=== PATIENT | female | born 1960 | race Caucasian/White ===

== ENCOUNTER 2021-07-30 06:34 | Emergency (ER) | payer BC, SELFPAY ==
--- NOTE | ~2021-07-30 | CT_ITS ---
EXAMINATION: CT FACE WITH CONTRAST CT NECK WITH CONTRAST CLINICAL INFORMATION: Right-sided facial swelling. Evaluate for abscess. COMPARISON: No relevant prior imaging. TECHNIQUE: Block Splitter Operator images were obtained. CT imaging of the face and neck was performed after the intravenous administration of 85 mL Omnipaque 350. Data was reformatted into multiplanar images at the acquisition workstation. This CT examination was performed using dose optimization techniques as appropriate, including one or more of the following: Automated exposure control, iterative reconstruction, and adjustment of technique factors (mA and/or kVp) according to patient size (this includes techniques or standardized protocols for targeted exams where dose is matched to indication/reason for exam). DLP: 725 mGy-cm. FINDINGS: Face: There is inflammatory stranding within the subcutaneous soft tissues of the right face. The source of infection is not clearly evident on the basis of this examination. No abnormal erosive osseous changes within the maxillary or mandibular alveolar process is to suggest a source of odontogenic disease. No identifiable subperiosteal abscess or discrete drainable fluid collection visualized elsewhere within the [id number] of this examination. Nasal bones, zygomatic arches, and pterygoid processes are intact. No acute mandibular fracture. The temporomandibular joints are symmetric. Paranasal sinuses are well aerated. All of the major paranasal sinus drainage pathways are patent. Nasal septum deviates to the right. Globes and extraocular muscles are symmetric. No abnormal retrobulbar mass or collection. Lamina papyracea and orbital floors are intact. Orbital apices are unremarkable. Limited visualization of the intracranial anatomy reveals no abnormal finding. Specifically there is no midline shift or hydrocephalus. Neck: Pharyngeal mucosal spaces are symmetric. Parapharyngeal and retromaxillary fat is preserved. Block Splitter Operator spaces are symmetric. The parotid and submandibular glands are unremarkable. The tongue base and epiglottis are normal. Preepiglottic fat is preserved. Glottic and subglottic airways are widely patent. The thyroid gland is normal and the remainder of the visualized visceral soft tissues are normal. There are no pathologically enlarged cervical lymph nodes. No mediastinal or axillary adenopathy is visualized within the [id number] of this examination. Lung apices are clear. There is a small intrapulmonary lymph node adjacent to the major fissure best visualized on axial image 114 of 158 series 3. The aortic arch apex is normal. Cervical carotid or vertebral arteries are grossly unremarkable. Internal jugular veins fill symmetrically. CT/CT facial bones w con IMPRESSION: There is asymmetric inflammation within the subcutaneous soft tissues of the right face, the source of which is not clearly evident on this examination. No identifiable anatomic abnormalities to suggest an odontogenic source. No discrete drainable fluid collection or abscess.
--- NOTE | ~2021-07-30 | CT_ITS ---
EXAMINATION: CT FACE WITH CONTRAST CT NECK WITH CONTRAST CLINICAL INFORMATION: Right-sided facial swelling. Evaluate for abscess. COMPARISON: No relevant prior imaging. TECHNIQUE: Owner Professional Engineer images were obtained. CT imaging of the face and neck was performed after the intravenous administration of 85 mL Omnipaque 350. Data was reformatted into multiplanar images at the acquisition workstation. This CT examination was performed using dose optimization techniques as appropriate, including one or more of the following: Automated exposure control, iterative reconstruction, and adjustment of technique factors (mA and/or kVp) according to patient size (this includes techniques or standardized protocols for targeted exams where dose is matched to indication/reason for exam). DLP: 725 mGy-cm. FINDINGS: Face: There is inflammatory stranding within the subcutaneous soft tissues of the right face. The source of infection is not clearly evident on the basis of this examination. No abnormal erosive osseous changes within the maxillary or mandibular alveolar process is to suggest a source of odontogenic disease. No identifiable subperiosteal abscess or discrete drainable fluid collection visualized elsewhere within the gzuhb-gv-pcdh of this examination. Nasal bones, zygomatic arches, and pterygoid processes are intact. No acute mandibular fracture. The temporomandibular joints are symmetric. Paranasal sinuses are well aerated. All of the major paranasal sinus drainage pathways are patent. Nasal septum deviates to the right. Globes and extraocular muscles are symmetric. No abnormal retrobulbar mass or collection. Lamina papyracea and orbital floors are intact. Orbital apices are unremarkable. Limited visualization of the intracranial anatomy reveals no abnormal finding. Specifically there is no midline shift or hydrocephalus. Neck: Pharyngeal mucosal spaces are symmetric. Parapharyngeal and retromaxillary fat is preserved. Math And Physics Instructor spaces are symmetric. The parotid and submandibular glands are unremarkable. The tongue base and epiglottis are normal. Preepiglottic fat is preserved. Glottic and subglottic airways are widely patent. The thyroid gland is normal and the remainder of the visualized visceral soft tissues are normal. There are no pathologically enlarged cervical lymph nodes. No mediastinal or axillary adenopathy is visualized within the oxxkf-[id number]-jvkc of this examination. Lung apices are clear. There is a small intrapulmonary lymph node adjacent to the major fissure best visualized on axial image 114 of 158 series 3. The aortic arch apex is normal. Cervical carotid or vertebral arteries are grossly unremarkable. Internal jugular veins fill symmetrically. CT/CT soft tissue neck w con IMPRESSION: There is asymmetric inflammation within the subcutaneous soft tissues of the right face, the source of which is not clearly evident on this examination. No identifiable anatomic abnormalities to suggest an odontogenic source. No discrete drainable fluid collection or abscess.
[2021-07-30 07:03] VITALS: BP 181/83; PULSE 109; RESP 18; TEMP 37; O2SAT 99; BMI 26.1
[2021-07-30 07:19] VITALS: BP 160/78; PULSE 104; RESP 16; TEMP 36.7; O2SAT 97
--- NOTE | 2021-07-30 07:47 | PC.NURSE ---
pt r side of facen swollen c/o sore throat and diff swallowing. states that she took benadryl 4 tabs with she vomitted this am. pt is a/o x 3 no sob/reddy noted skin pink warm dry speaks in full sentences and is able to hold secretions. no facial drooping noted.
--- NOTE | 2021-07-30 07:55 | ED_ITS ---
HPI - General Adult General Chief complaint: General Medical Stated complaint: swollen face Time Seen by Provider: 07/30/21 07:51 Source: patient Mode of arrival: ambulatory Limitations: no limitations History of Present Illness HPI narrative: 60-year-old male female came in for evaluation of right-sided facial swelling. Patient woke up from sleep with right-sided cheek swelling, patient had subjective feeling of difficulty swallowing. Tried to take Benadryl pill but she shortly vomited after. Patient is feeling difficulty swallowing also. Patient has no past medical history and taking no medication for any reason, patient declined any dental issue or problem. No recent signs of infection. Complaining of sore throat. Patient decline shortness of breath or change of voice. Patient is taking no medication normally at home. Related Data Previous Rx's Medication Instructions Recorded amoxicillin 500 mg-potassium 1 tab PO BID #14 tab 07/30/21 clavulanate 125 mg tablet prednisone 20 mg tablet 20 mg PO BID #6 tab 07/30/21 Allergies Allergy/AdvReac Type Severity Reaction Status Date / Time No Known Allergies Allergy Verified 07/30/21 07:47 Review of Systems Review of Systems: All other systems are reviewed and are negative Constitutional: Reports as per HPI and Reports no additional constitutional comp laints Eyes: Reports as per HPI and Reports no additional eye complaints Reports system reviewed and no additional complaints, except as documented Cardiovascular: Reports as per HPI and Reports no additional cardiovascular complaints Respiratory: Reports as per HPI and Reports no additional respiratory complaints Gastrointestinal: Reports as per HPI and Reports no additional gastrointestinal complaints Genitourinary: Reports no additional female genitourinary complaints Musculoskeletal: Reports no additional musculoskeletal complaints Skin/Breast: Reports system reviewed and no additional complaints, except as docu Psychiatric: Reports no additional psychiatric complaints Endocrine: Reports no additional endocrine complaints Hematologic/Lymphatic: Reports no additional hematologic/lymphatic complaints Allergic/Immunologic: Reports no additional allergic/immunologic complaints Reports system reviewed and no additional complaints, except as documented and Reports Abnormal speech present [facility] Social History Social History Alcohol intake: current Alcohol intake frequency: a few times a week Patient Tobacco Use Status: Never used Tobacco Use of substances other than those prescribed or required for medical reasons: No Advance Directives: No Advance Directives Information Provided: Yes Physical Exam ED Vital Signs: Vital Signs - 24 hr 07/30/21 07:03 07/30/21 07:19 07/30/21 09:57 Temperature 98.6 F 98.1 F 98.7 F Pulse Rate 109 H 104 H 98 Respiratory Rate 18 16 16 Blood Pressure 181/83 H 160/78 H 145/67 H Pulse Oximetry 99 97 99 07/30/21 12:13 Temperature Pulse Rate 90 Respiratory Rate 14 Blood Pressure 145/68 H Pulse Oximetry 100 BMI result Body Mass Index 26.1 Vital signs have been reviewed as appeared to be correct. Blood pressure normal. Heart rate normal. Respiration rate normal. Temperature normal. Oxygen saturation normal. Appearance: Alert. Oriented X3. No acute distress. Head: Normal external exam. Normocephalic. Atraumatic. No Vanegas signs noted. No raccoon eyes noted Eyes: PERRLA. EOMI. Conjunctiva and sclera normal. Eyelids normal. ENT: TM's Normal. Pharynx normal. Uvula midline. Moist mucous membranes. No trismus noted. No drooling noted. No muffled voice noted. Right cheek swelling with no tenderness or redness. Patent airway no stridor. Neck: Normal inspection. Neck supple. FROM. No adenopathy. Thyroid Normal. No meningeal signs. No neck mass noted. CVS: Normal heart rate and rhythm. Heart sound normal. No murmurs noted. Pulses normal throughout. Respiratory: No respiratory distress. Painless inspiration. Breath sounds normal. No wheezes/rales/rhonchi noted. Chest nontender. No accessory muscle usage noted or decreased air movement noted. Abdomen: Soft and nontender. Bowel sounds normal in all 4 quadrants. No distention noted. No organomegaly noted. No visible injury noted. Back: No CVA tenderness. Full range of motion noted. Skin: Skin warm and dry. Normal skin color. Normal skin turgor. No rashes/lesions/lacerations noted. Extremities: No lower extremity edema. Extremities exhibit normal range of motion. Extremities nontender. Neuro: Oriented X 3. Cranial nerve exam: II-XII are grossly intact No motor deficit. No sensory deficit. Reflexes normal. Course Course Course Narrative: Assessment and plan. 60-year-old female came in for evaluation of difficulty swallowing and right facial swelling. patient declined it good reason for the facial swelling. Unremarkable workup in the emergency department including face soft tissue neck CT which showed patent airway and symmetric swelling of the right side of the face. Physical exam/labs/CT shows no obvious reason of patient's symptoms. Patient felt better after was given Solu-Medrol/epinephrine/Pepcid will discharg e the patient home on short course of amoxicillin and 3 days course of prednisone. Medical Decision Making Lab Data Lab results reviewed: Yes I reviewed the patient's lab results. Result diagrams: 07/30/21 08:04 07/30/21 08:04 Labs: Lab Results 07/30/21 07/30/21 07/30/21 Range/Units 08:04 08:04 08:04 WBC 8.1 (4.8-10.8) X10*3/uL RBC 4.44 (4.20-5.50) X10*6/uL Hgb 11.8 L (12.0-16.0) g/dl Hct 38.5 (37.0-47.0) % MCV 86.7 (80.0-98.0) fL MCH 26.6 L (27.0-33.0) pg MCHC 30.6 L (31.0-35.0) g/dl RDW 20.4 H (11.0-16.0) % Plt Count 239 (160-400) X10*3/uL MPV 10.5 (9.4-12.3) fL Immature Gran % (Auto) 0.1 (0.0-0.4) % Neut % (Auto) 74.9 H (45-73) % Lymph % (Auto) 15.6 L (20-40) % [place] % (Auto) 7.8 (2-11) % Eos % (Auto) 1.2 (0-4) % Baso % (Auto) 0.4 (0-2) % Lymph # (Auto) 1.3 (1.2-4.9) X10*3/uL [place] # (Auto) 0.6 (0.1-1.2) X10*3/uL Eos # (Auto) 0.1 (0.0-0.4) X10*3/uL Baso # (Auto) 0.0 (0.0-0.2) X10*3/uL Abs Immat Gran (auto) 0.01 (0.00-0.03) X10*3/uL Absolute Neuts (auto) 6.1 (2.0-8.3) x10*3/uL Absolute Nucleated RBC 0.000 (0.0-0.012) X10*3/uL Nucleated RBC % (auto) 0.0 (0.0-0.2) /100WBC Sodium 139 (135-145) mmol/L Potassium 5.2 H (3.3-5.1) mmol/L Chloride 106 (96-108) mmol/L Carbon Dioxide 24 (22-29) mmol/L Anion Gap 14 (12-20) BUN 14 (9-16) mg/dL Creatinine 1.01 (0.5-1.4) mg/dL Estim Creat Clear Calc 55.8 Estimated GFR 56 Random Glucose 87 (60-115) mg/dL Calcium 9.7 (8.4-10.2) mg/dL Influenza Type A (PCR) (Negative) Influenza Type B (PCR) (Negative) RSV RNA Qual (PCR) (Negative) SARS-CoV-2 RNA (RT-PCR) (Negative) S. pyogenes GrpA ANILA Negative (Negative) 07/30/21 Range/Units 08:04 WBC (4.8-10.8) X10*3/uL RBC (4.20-5.50) X10*6/uL Hgb (12.0-16.0) g/dl Hct (37.0-47.0) % MCV (80.0-98.0) fL MCH (27.0-33.0) pg MCHC (31.0-35.0) g/dl RDW (11.0-16.0) % Plt Count (160-400) X10*3/uL MPV (9.4-12.3) fL Immature Gran % (Auto) (0.0-0.4) % Neut % (Auto) (45-73) % Lymph % (Auto) (20-40) % [place] % (Auto) (2-11) % Eos % (Auto) (0-4) % Baso % (Auto) (0-2) % Lymph # (Auto) (1.2-4.9) X10*3/uL [place] # (Auto) (0.1-1.2) X10*3/uL Eos # (Auto) (0.0-0.4) X10*3/uL Baso # (Auto) (0.0-0.2) X10*3/uL Abs Immat Gran (auto) (0.00-0.03) X10*3/uL Absolute Neuts (auto) (2.0-8.3) x10*3/uL Absolute Nucleated RBC (0.0-0.012) X10*3/uL Nucleated RBC % (auto) (0.0-0.2) /100WBC Sodium (135-145) mmol/L Potassium (3.3-5.1) mmol/L Chloride (96-108) mmol/L Carbon Dioxide (22-29) mmol/L Anion Gap (12-20) BUN (9-16) mg/dL Creatinine (0.5-1.4) mg/dL Estim Creat Clear Calc Estimated GFR Random Glucose (60-115) mg/dL Calcium (8.4-10.2) mg/dL Influenza Type A (PCR) NEGATIVE (Negative) Influenza Type B (PCR) NEGATIVE (Negative) RSV RNA Qual (PCR) NEGATIVE (Negative) SARS-CoV-2 RNA (RT-PCR) NEGATIVE (Negative) S. pyogenes GrpA ANILA (Negative) Imaging Data Facial/soft tissue neck CT: Attestation: I personally reviewed and interpreted this imaging study as follows: Radiologist's impression: There is asymmetric inflammation within the subcutaneous soft tissues of the right face, the source of which is not clearly evident on this examination. No identifiable anatomic abnormalities to suggest an odontogenic source. No discrete drainable fluid collection or abscess. Discharge Plan Discharge Clinical Impression: Right facial swelling Patient Disposition: Home, Self-Care Additional Instructions: Seek immediate medical attention if any difficulty breathing,fever,swollen throat,difficult to swallow, or of voice Prescriptions: New amoxicillin-pot clavulanate 500-125 mg tablet 1 tab PO BID Qty: 14 0RF prednisone 20 mg tablet 20 mg PO BID Qty: 6 0RF Referrals: Physician,Unknown J [Primary Care Provider] -
[2021-07-30] MEDS: 0.9 % Sodium Chloride 1,000 ML 999 ML IV ×2 (08:00→11:47)
[2021-07-30 08:11] LABS: MANUAL DIFF FLAG NO
[2021-07-30 08:23] LABS: Basophils Percent Auto 0.4 % (0-2); Eosinophils Absolute Auto 0.1 X10*3/uL (0.0-0.4); Eosinophils Percent Auto 1.2 % (0-4); Hematocrit 38.5 % (37.0-47.0); Hemoglobin 11.8 g/dl (12.0-16.0); Imm Gran Abs Auto 0.01 X10*3/uL (0.00-0.03); Imm Gran Pct Auto 0.1 % (0.0-0.4); Lymphocytes Absolute Auto 1.3 X10*3/uL (1.2-4.9); Lymphocytes Percent Auto 15.6 % (20-40); Mean Corpuscular HGB Conc 30.6 g/dl (31.0-35.0); Mean Corpuscular Hemoglobin 26.6 pg (27.0-33.0); Mean Corpuscular Volume 86.7 fL (80.0-98.0); Mean Platelet Volume 10.5 fL (9.4-12.3); Monocytes Absolute Auto 0.6 X10*3/uL (0.1-1.2); Monocytes Percent Auto 7.8 % (2-11); Neutrophils Absolute Auto 6.1 x10*3/uL (2.0-8.3); Neutrophils Percent Auto 74.9 % (45-73); Platelet Count 239 X10*3/uL (160-400); Red Blood Count 4.44 X10*6/uL (4.20-5.50); Red Cell Distribution Width 20.4 % (11.0-16.0); White Blood Count 8.1 X10*3/uL (4.8-10.8)
[2021-07-30 08:29] LABS: Anion Gap 14 (12-20); Blood Urea Nitrogen 14 mg/dL (9-16); Calcium 9.7 mg/dL (8.4-10.2); Carbon Dioxide 24 mmol/L (22-29); Chloride 106 mmol/L (96-108); Creatinine Clr Calc Pharmacy 55.8; Estimated Glomerular Filt Rate 56; Glucose Random 87 mg/dL (60-115); Potassium 5.2 mmol/L (3.3-5.1); Sodium 139 mmol/L (135-145)
[2021-07-30 08:37] LABS: IDNOW Serial# 08D9AD1C; Strep A Nucleic Acid Negative (Negative)
[2021-07-30 08:55] LABS: Influenza A PCR NEGATIVE (Negative); Influenza B PCR NEGATIVE (Negative); Resp Syncy Virus RNA Qual PCR NEGATIVE (Negative); SARS COV2 PCR INHOUSE NEGATIVE (Negative)
[2021-07-30] MEDS: iohexoL 350 MG/ML 100 ML INFUS..BTL IV (09:32)
[2021-07-30 09:57] VITALS: BP 145/67; PULSE 98; RESP 16; TEMP 37.1; O2SAT 99
[2021-07-30] MEDS: methylPREDNISolone Sod Succ 125 MG/2 ML VIAL IVPUSH (11:48)
[2021-07-30] MEDS: Famotidine/PF 20 MG/2 ML VIAL IVPUSH (11:48)
[2021-07-30] MEDS: diphenhydrAMINE HCL 50 MG/ML VIAL 25 MG IVPUSH (11:48)
[2021-07-30 12:13] VITALS: BP 145/68; PULSE 90; RESP 14; O2SAT 100
== END 2021-07-30 14:42 | disposition home or self-care (01) ==
PROVIDERS: Emergency Provider Emergency Medicine
DX: R22.0 Localized swelling, mass and lump, head (principal); Z20.822 Contact with and (suspected) exposure to COVID-19; J02.9 Acute pharyngitis, unspecified
CPT/HCPCS: 0241U; 36415; 70487; 70491; 80048; 85025; 87651; 96361; 96374; 96375; 99284; J1200; J2930; Q9967

== ENCOUNTER 2021-10-01 17:25 | Emergency (ER) | payer BC, SELFPAY ==
--- NOTE | ~2021-10-01 | CT_ITS ---
EXAMINATION: CT ABDOMEN AND PELVIS WITHOUT CONTRAST CLINICAL INFORMATION: Bilateral lower quadrant pain COMPARISON: None TECHNIQUE: Multidetector volumetric imaging was performed from the superior aspect of the liver through the pubic symphysis. Sagittal and coronal reformatted images were obtained on the technologist's workstation. This CT examination was performed using dose optimization techniques as appropriate, variously including the following: *Automated exposure control *Adjustment of mA and/or kV according to patient size (this includes techniques or standardized protocols for targeted exams where dose is matched to indication/reason for exam; i.e. extremities or head) *Use of iterative reconstruction technique DLP: 505 mGy-cm FINDINGS: LUNG BASES: The visualized lung bases are unremarkable. LIVER, GALLBLADDER, AND BILIARY TREE: The liver is normal in size, shape, and attenuation. No focal hepatic lesion or biliary ductal dilatation is present. There is trace perihepatic ascites. The gallbladder is unremarkable with no evidence of radiopaque gallstones, gallbladder wall thickening, or obvious pericholecystic inflammatory changes. PANCREAS: Unremarkable. SPLEEN: Unremarkable. ADRENAL GLANDS: Unremarkable. KIDNEYS AND URETERS: The kidneys are normal in size, shape, and attenuation. No hydronephrosis, hydroureter, or calculi seen. No perinephric stranding. Bilateral parapelvic cysts. BLADDER: Unremarkable. GASTROINTESTINAL TRACT: Postsurgical changes of the stomach involving a gastric sleeve. Small hiatal hernia. Normal caliber small bowel. No obstruction. There is wall thickening of the distal ileum extending to the terminal ileum. Inflammatory stranding of the adjacent fat. There is no colonic wall thickening. ABDOMINAL WALL: No significant hernia is appreciated. LYMPH NODES: Normal. VASCULAR: Normal caliber aorta with mild atherosclerotic calcification. PELVIC VISCERA: Anteverted uterus with no adnexal mass. Small volume of free fluid throughout the pelvis. OSSEOUS STRUCTURES: No acute or suspicious osseous abnormality. CT/CT abdomen pelvis wo con IMPRESSION: Prominent wall thickening with adjacent inflammation involving the distal ileum extending to the terminal ileum. Small volume of free fluid throughout the abdomen and pelvis. The appearance is most suggestive of enteritis. Fleischner guidelines were followed.
[2021-10-01 17:33] VITALS: BP 158/91; PULSE 90; RESP 18; TEMP 37.1; O2SAT 99; BMI 26.4
[2021-10-01 17:42] LABS: MANUAL DIFF FLAG NO
[2021-10-01 17:44] LABS: Basophils Percent Auto 0.4 % (0-2); Eosinophils Percent Auto 0.3 % (0-4); Hematocrit 42.6 % (37.0-47.0); Hemoglobin 13.6 g/dl (12.0-16.0); Imm Gran Abs Auto 0.02 X10*3/uL (0.00-0.03); Imm Gran Pct Auto 0.2 % (0.0-0.4); Lymphocytes Absolute Auto 2.6 X10*3/uL (1.2-4.9); Lymphocytes Percent Auto 24.1 % (20-40); Mean Corpuscular HGB Conc 31.9 g/dl (31.0-35.0); Mean Corpuscular Hemoglobin 30.6 pg (27.0-33.0); Mean Corpuscular Volume 95.9 fL (80.0-98.0); Mean Platelet Volume 10.1 fL (9.4-12.3); Monocytes Absolute Auto 0.8 X10*3/uL (0.1-1.2); Monocytes Percent Auto 7.1 % (2-11); Neutrophils Absolute Auto 7.2 x10*3/uL (2.0-8.3); Neutrophils Percent Auto 67.9 % (45-73); Platelet Count 265 X10*3/uL (160-400); Red Blood Count 4.44 X10*6/uL (4.20-5.50); Red Cell Distribution Width 19.2 % (11.0-16.0); White Blood Count 10.6 X10*3/uL (4.8-10.8)
[2021-10-01 17:57] LABS: Appearance Urine HAZY; Color Urine YELLOW; Glucose Urine UA NEG (NEG); Leukocyte Esterase Urine NEG (NEG); Nitrite Urine NEG (NEG); PH 5.5 (5.0-8.0); Specific Gravity - Urine >= 1.030 (1.005-1.025); UACC Culture Trigger NO; Urine Blood TRACE (NEG); Urine Ketones NEG (NEG); Urine Protein NEG (NEG-TRACE)
[2021-10-01 17:59] LABS: Alanine Aminotransferase 8 U/L (0-31); Albumin Level 4.1 g/dL (3.5-5.0); Alkaline Phosphatase 64 U/L (39-117); Anion Gap 16 (12-20); Aspartate Amino Transferase 16 U/L (5-31); Bilirubin Direct 0.4 mg/dL (0.0-0.5); Bilirubin Total 0.9 mg/dL (0.0-1.0); Blood Urea Nitrogen 19 mg/dL (9-16); Carbon Dioxide 22 mmol/L (22-29); Chloride 107 mmol/L (96-108); Creatinine Clr Calc Pharmacy 50.6; Estimated Glomerular Filt Rate 49; Glucose Random 129 mg/dL (60-115); Potassium 4.5 mmol/L (3.3-5.1); Sodium 140 mmol/L (135-145); Total Protein 6.7 g/dL (6.5-8.0)
[2021-10-01 18:12] LABS: Bacteria Urine 1+ /LPF; RBC Urine 0-2 /HPF (0); Squamous Epithelial Cell Urine 3+ /LPF; WBC Urine 0 /HPF (0-4)
[2021-10-01 21:19] VITALS: BP 182/90; PULSE 75; RESP 16; TEMP 36.8; O2SAT 97
--- NOTE | 2021-10-01 21:33 | ED.ABDPAIN ---
HPI - Abdominal Pain General Chief Complaint: Abdominal Pain Stated Complaint: sever abd pain, sent from [facility] Time Seen by Provider: 10/01/21 20:16 Source: patient Mode of arrival: ambulatory History of Present Illness HPI narrative: 60-year-old female with history of hypertension presents with onset lower abdominal discomfort that started this morning and has gotten progressively worse throughout the day with onset of nausea and vomiting and anorexia after lunch, pain is worse on standing but has not been associated with fever or chills, but patient reports an episode of diarrhea and has continued to pass flatus without urinary pain/ burning / frequency. She denies any history of renal colic but has had prior bariatric surgery. Related Data Home Medications Medication Instructions Recorded Confirmed metoprolol succinate 25 mg 25 mg PO DAILY 10/01/21 tablet,extended release 24 hr Previous Rx's Medication Instructions Recorded ondansetron 4 mg disintegrating 4 mg PO Q8H PRN nausea and 10/01/21 tablet vomiting #7 tabs Allergies Allergy/AdvReac Type Severity Reaction Status Date / Time No Known Allergies Allergy Verified 10/01/21 16:47 Review of Systems Review of Systems Pertinent positives and negatives as stated in HPI 10 point review of systems is otherwise negative. PMFSH Past Medical History Source: nursing notes reviewed Social History Social History Alcohol intake: current Alcohol intake frequency: a few times a week Patient Tobacco Use Status: Never used Tobacco Advance Directives: No Advance Directives Information Provided: No Physical Exam ED Vital Signs: Vital Signs - 24 hr 10/01/21 17:33 10/01/21 21:19 10/01/21 22:58 Temperature 98.7 F 98.3 F 98.3 F Pulse Rate 90 75 67 Respiratory Rate 18 16 16 Blood Pressure 158/91 H 182/90 H 193/84 H Pulse Oximetry 99 97 99 Oxygen Delivery Method Room Air Room Air Room Air BMI result Body Mass Index 26.4 VITAL SIGNS: Reviewed. GENERAL: Well developed, well nourished, in no acute distress. HEAD: Normocephalic/atraumatic EYES: PERRLA, EOMI EARS: Ext canals without abnormality OROPHARYNX: no oral lesions noted, posterior pharynx clear LUNGS: Normal breath sounds. No adventitious sounds or accessory muscle use. SpO2<99> CARDIOVASCULAR: Regular rate and rhythm without noted murmurs ABDOMEN: Soft, lower abdominal pain that is maximal at right lower quadrant without rebound, positive voluntary guarding,non-distended with bowel sounds. MUSCULOSKELETAL: No tenderness, deformities, or effusions noted on gross inspection. EXTREMITIES: No cyanosis, clubbing or edema. SKIN: Inspection of the skin reveals no rashes NEUROLOGIC: Alert and oriented x 4. Strength and sensation to light touch were grossly intact x 4. Course Course Course Narrative: 60-year-old female with history and clinical presentation consistent with possible appendicitis, SBO, less likely UTI or renal colic. On review of all investigations there is demonstration of enteritis, patient has had no further episodes of diarrhea/nausea/vomiting, patient is not febrile and pain is well controlled at this time. Patient has tolerated oral intake and states feeling better with complete resolution of the nausea and vomiting. All results and findings were discussed with her at bedside and she will be discharged home in stable condition with a prescription for antiemetic and instructions to follow-up with her primary care provider by calling the office in the morning to set up an appointment for re-evaluation. She was informed that if things did not improve over the next 24-48 hours that she should return. MDM - Abdominal Pain Lab Data Result diagrams: 10/01/21 17:38 10/01/21 17:38 Labs: Lab Results 10/01/21 10/01/21 10/01/21 Range/Units 17:38 17:38 17:43 WBC 10.6 (4.8-10.8) X10*3/uL RBC 4.44 (4.20-5.50) X10*6/uL Hgb 13.6 (12.0-16.0) g/dl Hct 42.6 (37.0-47.0) % MCV 95.9 (80.0-98.0) fL MCH 30.6 (27.0-33.0) pg MCHC 31.9 (31.0-35.0) g/dl RDW 19.2 H (11.0-16.0) % Plt Count 265 (160-400) X10*3/uL MPV 10.1 (9.4-12.3) fL Immature Gran % (Auto) 0.2 (0.0-0.4) % Neut % (Auto) 67.9 (45-73) % Lymph % (Auto) 24.1 (20-40) % [place] % (Auto) 7.1 (2-11) % Eos % (Auto) 0.3 (0-4) % Baso % (Auto) 0.4 (0-2) % Lymph # (Auto) 2.6 (1.2-4.9) X10*3/uL [place] # (Auto) 0.8 (0.1-1.2) X10*3/uL Eos # (Auto) 0.0 (0.0-0.4) X10*3/uL Baso # (Auto) 0.0 (0.0-0.2) X10*3/uL Abs Immat Gran (auto) 0.02 (0.00-0.03) X10*3/uL Absolute Neuts (auto) 7.2 (2.0-8.3) x10*3/uL Absolute Nucleated RBC 0.000 (0.0-0.012) X10*3/uL Nucleated RBC % (auto) 0.0 (0.0-0.2) /100WBC Sodium 140 (135-145) mmol/L Potassium 4.5 (3.3-5.1) mmol/L Chloride 107 (96-108) mmol/L Carbon Dioxide 22 (22-29) mmol/L Anion Gap 16 (12-20) BUN 19 H (9-16) mg/dL Creatinine 1.12 (0.5-1.4) mg/dL Estim Creat Clear Calc 50.6 Estimated GFR 49 Random Glucose 129 H (60-115) mg/dL Calcium 9.0 D (8.4-10.2) mg/dL Total Bilirubin 0.9 (0.0-1.0) mg/dL Direct Bilirubin 0.4 (0.0-0.5) mg/dL AST 16 (5-31) U/L ALT 8 (0-31) U/L Alkaline Phosphatase 64 (39-117) U/L Total Protein 6.7 (6.5-8.0) g/dL Albumin 4.1 (3.5-5.0) g/dL Urine Color YELLOW Urine Appearance HAZY Urine pH 5.5 (5.0-8.0) Ur Specific [place] >= 1.030 H (1.005-1.025) Urine Protein NEG (NEG-TRACE) MG/DL Urine Glucose (UA) NEG (NEG) MG/DL Urine Ketones NEG (NEG) MG/DL Urine Blood TRACE (NEG) Urine Nitrite NEG (NEG) Ur Leukocyte Esterase NEG (NEG) Urine RBC 0-2 (0) /HPF Urine WBC 0 (0-4) /HPF Ur Squamous Epith Cells 3+ /LPF Urine Bacteria 1+ /LPF Discharge Plan Discharge Clinical Impression: Enteritis, Dehydration Patient Disposition: Home, Self-Care Instructions: Dehydration (ED), Enteritis (ED) Additional Instructions: 1. Resume all home medications as prescribed. 2. You have been provided with a prescription for nausea control. Continue with bland diet and primarily water for the next 24-48 hours. 3. Recommend [id number] Tylenol/ ibuprofen as needed for pain control. 4. Call the office of your primary care provider in the morning to set up an appointment for re-evaluation. Do not hesitate to return to the emergency room for worsening symptoms. Prescriptions: New ondansetron 4 mg tablet,disintegrating 4 mg PO Q8H PRN (Reason: nausea and vomiting) Qty: 7 0RF No Action metoprolol succinate 25 mg tablet extended release 24 hr 25 mg PO DAILY Referrals: Clint Au MD [Primary Care Provider] -
[2021-10-01] MEDS: Ketorolac Tromethamine 30 MG/ML VIAL 15 MG IVPUSH (21:52)
[2021-10-01] MEDS: 0.9 % Sodium Chloride 1,000 ML 999 ML IV (21:53)
[2021-10-01 22:58] VITALS: BP 193/84; PULSE 67; RESP 16; TEMP 36.8; O2SAT 99
[2021-10-02] MEDS: amLODIPine Besylate 5 MG TABLET PO (00:10)
== END 2021-10-02 00:18 | disposition home or self-care (01) ==
PROVIDERS: Emergency Provider Student in an Organized Health Care Education/Training Program; PCP Internal Medicine
DX: K52.9 Noninfective gastroenteritis and colitis, unspecified (principal); E86.0 Dehydration; R10.9 Unspecified abdominal pain; Z79.899 Other long term (current) drug therapy
CPT/HCPCS: 36415; 74176; 80053; 81001; 82248; 85025; 96361; 96374; 99284; J1885

== ENCOUNTER 2021-10-08 00:59 | Observation (INO) | payer BC, SELFPAY ==
[2021-10-08] VITALS (14 sets, daily range): BP systolic 120–174; BP diastolic 48–100; PULSE 71–110; RESP 12–100; TEMP 36.6–37.4; O2SAT 96–100; BMI 28.9
--- NOTE | 2021-10-08 01:08 | ED_ITS ---
HPI - Allergic Reaction General Chief complaint: General Medical Stated complaint: angio adema Time Seen by Provider: 10/08/21 01:08 Source: patient Mode of arrival: EMS Limitations: no limitations History of Present Illness HPI narrative: 60 yo female with hx of HTN on lisinopril - did have a few drinks tonight but nothing out of the ordinary she notes that she woke up with a swollen tongue and couldn't swallow. She has had allergic reactions before but not to this degree. This is unusual for her. No new medications MD complaint: other (angioedema of mouth) Onset (ago): minute(s) (just prior to arrival ) Exposure: unknown Symptoms: lip swelling, difficulty swallowing and tongue swelling Severity: severe Treatment prior to arrival: benadryl (25mg) and epinephrine (one dose by EMS) Previous Allergic Reaction History: prior ED visit(s) Related Data Allergies Allergy/AdvReac Type Severity Reaction Status Date / Time No Known Allergies Allergy Verified 10/08/21 01:08 Review of Systems Review of Systems: Constitutional : No Fever, No Chills ENT/Mouth : positive oral swelling, pos Hoarseness, pos Swallowing Difficulty Eyes: No Eye Pain, No Swelling, No Redness Cardiovascular : No Chest Pain, No SOB Respiratory : No Cough, No Sputum, No Wheezing, No Smoke Exposure, No Dyspnea Gastrointestinal : No Nausea, No Vomiting, No Diarrhea, No abdominal Pain Genitourinary : No Dysuria, No Urinary Frequency, No Hematuria Musculoskeletal : No joint pain, No Myalgias, No Joint Swelling Skin : No Skin Lesions, positive rash Neuro : No Weakness, No Numbness, No Headache Psych : No Anxiety/Panic, No Depression Heme/Lymph: No Bruising, No Lymphadenopathy Endocrine : No Polyuria, No Polydipsia All other systems reviewed and are negative [facility] Past Medical History Attestation statement: The following information was validated with the patient. Medical History Hypertension Menopause Social History Social History Alcohol intake: current Alcohol intake frequency: a few times a week Alcohol type: wine Patient Tobacco Use Status: Never used Tobacco Use of substances other than those prescribed or required for medical reasons: No Advance Directives: No Advance Directives Information Provided: Yes Physical Exam ED Vital Signs: Vital Signs - 24 hr 08/01/22 01:09 10/08/21 01:23 10/08/21 01:27 Temperature 98.3 F 98.3 F Pulse Rate 86 86 87 Respiratory Rate 15 12 Blood Pressure 173/100 H 162/60 H 162/60 H Pulse Oximetry 100 100 Oxygen Delivery Method Nasal Cannula Room Air Oxygen Flow Rate 4 10/08/21 01:55 10/08/21 02:12 10/08/21 03:53 Temperature 98.3 F 99.1 F 99.4 F Pulse Rate 87 90 97 Respiratory Rate 19 15 16 Blood Pressure 151/65 H 158/63 H 120/48 L Pulse Oximetry 98 Oxygen Delivery Method Room Air Oxygen Flow Rate 10/08/21 04:05 Temperature 99.1 F Pulse Rate 91 Respiratory Rate 18 Blood Pressure 131/61 Pulse Oximetry Oxygen Delivery Method Oxygen Flow Rate BMI result Body Mass Index 28.9 Appearance: Alert. Oriented X3. moderate acute distress. Anxious Eyes: Pupils equal, round and reactive to light. ENT: moderate tongue swelling, moderate soft palate and uvula swelling, muffled voice. Neck: Normal inspection. Neck supple. no stridor CVS: Normal heart rate and rhythm. Pulses normal. Respiratory: No respiratory distress. Breath sounds normal. Abdomen: Soft and nontender. Skin: Skin warm and dry. Normal skin color. Normal skin turgor. Extremities: No lower extremity edema. No calf ttp Neuro: Oriented X 3. No motor deficit. No sensory deficit. Course Course Course Narrative: patient improving voice improving - swelling drastically improving swelling is still improving at this time swelling is improved significantly but she still has persistent posterior swelling and muffled voice - at this time will admit for further monitoring and airway observation hospitalist notified 6am obs in ED x 5 hours MDM - Allergic Reaction MDM Narrative Medical decision making narrative: 60 yo female with hx of HTN on lisinopril comes in with severe angioedema - already given epi and benadryl by EMS - will give additional pepcid, benadryl, steroids and repeat epi. Given prior allergic reaction but no angioedema will try FFP for bradykinin given her degree of oral swelling. Patient aware we might need to intubate if this progresses. Lab Data Result diagrams: 10/08/21 01:17 10/08/21 01:17 Labs: Lab Results 10/08/21 10/08/2122 Range/Units 01:17 01:17 01:17 WBC 11.6 H (4.8-10.8) X10*3/uL RBC 3.77 L (4.20-5.50) X10*6/uL Hgb 11.8 L (12.0-16.0) g/dl Hct 36.1 L (37.0-47.0) % MCV 95.8 (80.0-98.0) fL MCH 31.3 (27.0-33.0) pg MCHC 32.7 (31.0-35.0) g/dl RDW 18.2 H (11.0-16.0) % Plt Count 255 (160-400) X10*3/uL MPV 10.4 (9.4-12.3) fL Immature Gran % (Auto) 0.2 (0.0-0.4) % Neut % (Auto) 30.3 L (45-73) % Lymph % (Auto) 59.5 H (20-40) % Williamson % (Auto) 7.9 (2-11) % Eos % (Auto) 1.8 (0-4) % Baso % (Auto) 0.3 (0-2) % Lymph # (Auto) 6.9 H (1.2-4.9) X10*3/uL Williamson # (Auto) 0.9 (0.1-1.2) X10*3/uL Eos # (Auto) 0.2 (0.0-0.4) X10*3/uL Baso # (Auto) 0.0 (0.0-0.2) X10*3/uL Abs Immat Gran (auto) 0.02 (0.00-0.03) X10*3/uL Absolute Neuts (auto) 3.5 (2.0-8.3) x10*3/uL Absolute Nucleated RBC 0.000 (0.0-0.012) X10*3/uL Nucleated RBC % (auto) 0.0 (0.0-0.2) /100WBC Smear Tech's Comments VERIFIED Sodium 144 (135-145) mmol/L Potassium 3.4 (3.3-5.1) mmol/L Chloride 109 H (96-108) mmol/L Carbon Dioxide 20 L (22-29) mmol/L Anion Gap 18 (12-20) BUN 12 (9-16) mg/dL Creatinine 0.78 (0.5-1.4) mg/dL Estim Creat Clear Calc 75.8 Estimated GFR > 60 Random Glucose 123 H (60-115) mg/dL Calcium 8.9 (8.4-10.2) mg/dL COVID-19 (ROSEANNE) Negative (Negative) COVID-19 Clin Com See Note Blood Type Antibody Screen 10/08/21 Range/Units 01:38 WBC (4.8-10.8) X10*3/uL RBC (4.20-5.50) X10*6/uL Hgb (12.0-16.0) g/dl Hct (37.0-47.0) % MCV (80.0-98.0) fL MCH (27.0-33.0) pg MCHC (31.0-35.0) g/dl RDW (11.0-16.0) % Plt Count (160-400) X10*3/uL MPV (9.4-12.3) fL Immature Gran % (Auto) (0.0-0.4) % Neut % (Auto) (45-73) % Lymph % (Auto) (20-40) % Williamson % (Auto) (2-11) % Eos % (Auto) (0-4) % Baso % (Auto) (0-2) % Lymph # (Auto) (1.2-4.9) X10*3/uL Williamson # (Auto) (0.1-1.2) X10*3/uL Eos # (Auto) (0.0-0.4) X10*3/uL Baso # (Auto) (0.0-0.2) X10*3/uL Abs Immat Gran (auto) (0.00-0.03) X10*3/uL Absolute Neuts (auto) (2.0-8.3) x10*3/uL Absolute Nucleated RBC (0.0-0.012) X10*3/uL Nucleated RBC % (auto) (0.0-0.2) /100WBC Smear Tech's Comments Sodium (135-145) mmol/L Potassium (3.3-5.1) mmol/L Chloride (96-108) mmol/L Carbon Dioxide (22-29) mmol/L Anion Gap (12-20) BUN (9-16) mg/dL Creatinine (0.5-1.4) mg/dL Estim Creat Clear Calc Estimated GFR Random Glucose (60-115) mg/dL Calcium (8.4-10.2) mg/dL COVID-19 (ROSEANNE) (Negative) COVID-19 Clin Com Blood Type O Positive Antibody Screen NEGATIVE Critical Care Time Critical Care Time Critical Care Time: Yes Total Critical Care Time: 60 Attestation: repeat bedside assessments, IM epi, interventions for angioedema, airway monitoring I attest to this time spent taking care of the patient Discharge Plan Discharge Clinical Impression: Angioedema Patient Disposition: Admitted As Inpatient
[2021-10-08] MEDS: diphenhydrAMINE HCL 50 MG/ML VIAL 25 MG IVPUSH ×2 (01:22→06:53)
[2021-10-08] MEDS: EPINEPHrine 1 MG/ML VIAL 0.3 MG IM (01:23)
[2021-10-08] MEDS: methylPREDNISolone Sod Succ 125 MG/2 ML VIAL IVPUSH (01:23)
[2021-10-08] MEDS: Famotidine/PF 20 MG/2 ML VIAL IVPUSH ×2 (01:23→06:56)
--- NOTE | 2021-10-08 01:28 | PC.NURSE ---
pt arrived from home via EMS, angioedema, swollen tongue, pt woke up w symptoms. 25mg diphehydramine given my EMS - 20G R AC, medicated per provider verbal order on EMS arrival, bus monitor applied, provider in room w pt.
[2021-10-08 01:46] LABS: Basophils Percent Auto 0.3 % (0-2); Eosinophils Absolute Auto 0.2 X10*3/uL (0.0-0.4); Eosinophils Percent Auto 1.8 % (0-4); Hematocrit 36.1 % (37.0-47.0); Hemoglobin 11.8 g/dl (12.0-16.0); Imm Gran Abs Auto 0.02 X10*3/uL (0.00-0.03); Imm Gran Pct Auto 0.2 % (0.0-0.4); Lymphocytes Percent Auto 59.5 % (20-40); MANUAL DIFF FLAG SCAN; Mean Corpuscular HGB Conc 32.7 g/dl (31.0-35.0); Mean Corpuscular Hemoglobin 31.3 pg (27.0-33.0); Mean Corpuscular Volume 95.8 fL (80.0-98.0); Mean Platelet Volume 10.4 fL (9.4-12.3); Monocytes Absolute Auto 0.9 X10*3/uL (0.1-1.2); Monocytes Percent Auto 7.9 % (2-11); Neutrophils Absolute Auto 3.5 x10*3/uL (2.0-8.3); Neutrophils Percent Auto 30.3 % (45-73); Platelet Count 255 X10*3/uL (160-400); Red Blood Count 3.77 X10*6/uL (4.20-5.50); Red Cell Distribution Width 18.2 % (11.0-16.0); SCAN SMEAR FLAG 1; White Blood Count 11.6 X10*3/uL (4.8-10.8)
[2021-10-08 01:53] LABS: Lymphocytes Absolute Auto 6.9 X10*3/uL (1.2-4.9)
[2021-10-08 01:59] LABS: COVID-19 Test Negative (Negative)
[2021-10-08 02:03] LABS: Anion Gap 18 (12-20); Blood Urea Nitrogen 12 mg/dL (9-16); Calcium 8.9 mg/dL (8.4-10.2); Carbon Dioxide 20 mmol/L (22-29); Chloride 109 mmol/L (96-108); Creatinine Clr Calc Pharmacy 75.8; Estimated Glomerular Filt Rate > 60; Glucose Random 123 mg/dL (60-115); Potassium 3.4 mmol/L (3.3-5.1); Sodium 144 mmol/L (135-145)
[2021-10-08 02:04] LABS: SLIDE REVIEW VERIFIED
--- NOTE | 2021-10-08 03:44 | PC.NURSE ---
Pt resting comfortable in bed at this time. VSS. Pt denies any swelling of the tongue or difficulty breathing. FFP is infusing.
--- NOTE | 2021-10-08 08:14 | PHA.MEDREC ---
Pharmacy Consult ? Medication Reconciliation Pharmacy has completed the medication reconciliation.
--- NOTE | 2021-10-08 08:42 | P.HPHOSP_ITS ---
History of Present Illness Date of Service: 10/08/21 Attending physician on admission: Trinidad Jorgensen Chief Complaint: angioedema 60-year-old female with past medical history of hypertension, menopause: come to the hospital because of swelling of her lips, mouth as well as neck and was having shortness of breath 1-2 am: her daughter call 911 and sent her to the hospital: As per the patient patient went last night with her friend outside, eat pizza which she eats regularly and then she came back home and slept until 01:00 o'clock she started having these symptoms. She said that she was recently started on new blood pressure medication 2 months ago( lisinopril)- she had similar mild symptom a month ago but that she continue to take medication. currently should denies any shortness of breath, swelling of mouth and lips are is also improving after she received steroids, famotidine, Benadryl, epinephrine in the ED. Denies any new complaint of chest pain or shortness of breath or abdominal pain or fever or chills or nausea or vomiting Denies any cough Denies any weakness or numbness. lab reviewed: Mild leukocytosis probably related to steroid use, BMP seems fine except mild hyperglycemia. past surgical history: Patient says that is she probably has history of gastric sleeve but unclear which surgery she had( in [facility] Six years ago. Social history: Does not smoke or use any recreational drugs. Drinks 2 glasses of wine 3 times a week. Lives with her daughter, ADL independent. COVID vaccine: Patient took 1 moderna shot. Review of Systems Review of Systems: As above. [facility] Medical History Hypertension Menopause Pertinent family history: family hx of heart dis-2 brothers. Social History Alcohol intake: current Alcohol intake frequency: a few times a week Alcohol type: wine Patient Tobacco Use Status: Never used Tobacco Use of substances other than those prescribed or required for medical reasons: No Advance Directives: No Advance Directives Information Provided: Yes Meds Allergies Allergy/AdvReac Type Severity Reaction Status Date / Time No Known Allergies Allergy Verified 10/08/21 14:04 Home Medications Medication Instructions Recorded Confirmed Last Taken Type metoprolol succinate 25 mg 25 mg PO DAILY 10/01/21 Unknown History tablet,extended release 24 hr fluoride (sodium) 1.1 % dental 1 ea dental DAILY 10/08/21 10/08/21 Unknown History paste (PreviDent 5000 Booster Plus) lisinopril 10 mg tablet 1 tab PO DAILY 10/08/21 10/08/21 Unknown History medroxyprogesterone 5 mg tablet 1 tab PO DAILY 10/08/21 10/08/21 Unknown History metoprolol succinate 25 mg 1 tab PO DAILY 10/08/21 10/08/21 Unknown History tablet,extended release 24 hr Physical Exam Vital Signs and Narrative: Vital Signs: Last Vital Signs Temp 99.2 F 10/08/21 06:22 Pulse 89 10/08/21 06:22 Resp 16 10/08/21 06:22 BP 152/70 H 10/08/21 06:22 Pulse Ox 98 10/08/21 06:22 O2 Del Method 10/08/21 06:22 O2 Flow Rate 4 10/08/21 01:27 Oxygen Flow Rate 4 10/08/21 01:09 BMI result Body Mass Index 28.9 Appearance: Alert.? Oriented X3.? not in distress.? Eyes: Pupils equal, round and reactive to light.? Sclera nonicteric.? ENT: mild mip swellin, otherwise oral mucosa seems fine. cvs: rrr, [id number]. res: clear to auscultation ,no rhonchii or wheezing abd: no rebound or guarding ,nt, bs present. ext pulses present , no cyanosis. neuro: axo3 , nonfocal. Results Labs CBC and Chem 7: 10/08/21 01:17 10/08/21 01:17 Labs: Laboratory Results - last 24 hr 10/08/21 10/08/21 10/08/21 01:17 01:17 01:17 MCV 95.8 MCH 31.3 MCHC 32.7 RDW 18.2 H Plt Count 255 MPV 10.4 Immature Gran % (Auto) 0.2 Neut % (Auto) 30.3 L Lymph % (Auto) 59.5 H Edmonson % (Auto) 7.9 Eos % (Auto) 1.8 Baso % (Auto) 0.3 Lymph # (Auto) 6.9 H [place] # (Auto) 0.9 Eos # (Auto) 0.2 Baso # (Auto) 0.0 Abs Immat Gran (auto) 0.02 Absolute Neuts (auto) 3.5 Absolute Nucleated RBC 0.000 Nucleated RBC % (auto) 0.0 Smear Tech's Comments VERIFIED Anion Gap 18 Estim Creat Clear Calc 75.8 Estimated GFR > 60 Random Glucose 123 H Calcium 8.9 COVID-19 (ROSEANNE) Negative COVID-19 Clin Com See Note Blood Type Antibody Screen 10/08/21 01:38 MCV MCH MCHC RDW Plt Count MPV Immature Gran % (Auto) Neut % (Auto) Lymph % (Auto) Edmonson % (Auto) Eos % (Auto) Baso % (Auto) Lymph # (Auto) Edmonson # (Auto) Eos # (Auto) Baso # (Auto) Abs Immat Gran (auto) Absolute Neuts (auto) Absolute Nucleated RBC Nucleated RBC % (auto) Smear Tech's Comments Anion Gap Estim Creat Clear Calc Estimated GFR Random Glucose Calcium COVID-19 (ROSEANNE) COVID-19 Clin Com Blood Type O Positive Antibody Screen NEGATIVE Assessment and Plan (1) Angioedema: Qualifiers: Encounter type: initial encounter Qualified Code(s): T78.3XXA - Angioneurotic edema, initial encounter Status: Acute Plan 60-year-old female with past medical history of hypertension, menopause: patient getting admitted for possible angioedema secondary lisinopril. 1. Possible angioedema: started on IV steroids, Benadryl,famotidine avoid lisinopril use in future 2. hypertension: Will add amlodipine. DVT prophylaxis: Ambulatory, advised to walk. considering possible angioedema- monitor on IV steroid, Benadryl, famotidine, and monitor for 24 hours. above management discussed the patient detail length patient understand and in agreement with the above plan, time spent 70 minute, patient full code. Quality Stroke Does the patient have a stroke diagnosis?: No VTE Prior VTE?: No VTE Risk Level:: Medical - moderate - high VTE Device Contraindication: N/A - Device Ordered VTE Drug Contraindication: N/A - Med Ordered
[2021-10-08] MEDS: Famotidine 20 MG TABLET PO ×2 (09:04→20:44)
[2021-10-08] MEDS: diphenhydrAMINE HCL 25 MG TABLET PO ×3 (09:04→20:45)
[2021-10-08] MEDS: methylPREDNISolone Sod Succ 40 MG/ML VIAL IVPUSH ×2 (09:05→20:44)
--- NOTE | 2021-10-08 11:07 | PC.NURSE ---
pt remains in er as pending admission, seen by hospitalist at bedside. pt reports still feeling relief from swelling, tolerated po food without swallowing issue or difficulty. vss.
[2021-10-08] MEDS: amLODIPine Besylate 5 MG TABLET PO (14:17)
[2021-10-08] MEDS: 0.9 % Sodium Chloride Flush 3 ML SYRINGE IVFLUSH ×2 (17:12→20:45)
[2021-10-08] MEDS: hydrOXYzine HCL 25 MG TABLET PO (20:45)
[2021-10-09] MEDS: diphenhydrAMINE HCL 25 MG TABLET PO ×2 (03:13→08:22)
[2021-10-09 03:44] VITALS: BP 132/63; PULSE 67; RESP 18; TEMP 36.2; O2SAT 97
[2021-10-09 07:26] LABS: Hematocrit 33.7 % (37.0-47.0); Mean Corpuscular HGB Conc 32.6 g/dl (31.0-35.0); Mean Corpuscular Hemoglobin 31.3 pg (27.0-33.0); Mean Corpuscular Volume 95.7 fL (80.0-98.0); Mean Platelet Volume 11.5 fL (9.4-12.3); Platelet Count 209 X10*3/uL (160-400); Red Blood Count 3.52 X10*6/uL (4.20-5.50); Red Cell Distribution Width 17.7 % (11.0-16.0); White Blood Count 9.1 X10*3/uL (4.8-10.8)
[2021-10-09 07:40] LABS: Estimated Average Glucose 97 mg/dL
[2021-10-09 07:44] VITALS: BP 159/83; PULSE 93; RESP 17; TEMP 35.6; O2SAT 99
[2021-10-09] MEDS: 0.9 % Sodium Chloride Flush 3 ML SYRINGE IVFLUSH (08:21)
[2021-10-09] MEDS: Metoprolol Succinate ER 25 MG TAB.ER.24H PO ×2 (08:22→14:04)
[2021-10-09] MEDS: Famotidine 20 MG TABLET PO (08:23)
[2021-10-09] MEDS: medroxyPROGESTERone Acetate 5 MG TABLET PO (08:23)
[2021-10-09] MEDS: methylPREDNISolone Sod Succ 40 MG/ML VIAL IVPUSH (08:23)
[2021-10-09 11:09] VITALS: BP 181/83; PULSE 63; RESP 16; TEMP 36.6; O2SAT 96
[2021-10-09 11:26] VITALS: BP 172/85
--- NOTE | 2021-10-09 11:36 | MHC.CM.PN ---
Per ROUNDS discussion, Patient will be medically cleared for dc to home today, self care. ESTHER addressed with Patient at bedside and original has been given to her and a copy has been placed on the chart. Patient's Daughter will provide transport to home.
--- NOTE | 2021-10-09 13:11 | PM.DS ---
DS: Providers Provider Date of Service: 10/09/21 Date of admission: 10/08/21 08:39 Primary care physician: Clarisa Cee MD DS: Summary Hospital Course Hospital Course: Patient was admitted for angioedemaa related to lisinopril and was monitored in the hospital without further complications. Lisnopril was discontinued and Norvasc dosed was increased and she was to follow up with PCP for further med adjustement and optimization of blood pressure Time Spent with Patient Time attestation: Total time spent providing and/or coordinating discharge services: Discharge coordination time: Greater than 30 minutes Quality: Safe Use of Opioids Does Pt have an Active Cancer Diagnosis on the Problem List?: No Quality: Stroke Does the patient have a stroke diagnosis?: No Physical Exam Vital Signs: Vital Signs: Last Vital Signs Temp 97.9 F 10/09/21 11:09 Pulse 63 10/09/21 11:09 Resp 16 10/09/21 11:09 BP 152/80 H 10/09/21 14:49 Pulse Ox 96 10/09/21 11:09 O2 Del Method 10/09/21 11:09 O2 Flow Rate 4 10/08/21 01:27 Oxygen Flow Rate 4 10/08/21 01:09 BMI result Body Mass Index 28.9 Discharge Plan Discharge Anticipated Discharge Date/Time: 10/09/21 13:42 Patient Disposition: Home, Self-Care Discharge Diagnosis: Angiodema related to romy Referrals: Clarisa Cee MD [Primary Care Provider] - 1 Week Discharge Medications: New metoprolol succinate 50 mg capsule,sprinkle,ER 24hr 50 mg PO DAILY Qty: 30 0RF amlodipine [Norvasc] 5 mg tablet 5 mg PO DAILY Qty: 30 0RF Continued ondansetron 4 mg tablet,disintegrating 4 mg PO Q8H PRN (Reason: nausea and vomiting) Qty: 7 0RF medroxyprogesterone 5 mg tablet 1 tab PO DAILY fluoride (sodium) [PreviDent 5000 Booster Plus] 1.1 % paste 1 ea dental DAILY metoprolol succinate 25 mg tablet extended release 24 hr 25 mg PO DAILY Discontinued lisinopril 10 mg tablet 1 tab PO DAILY metoprolol succinate 25 mg tablet extended release 24 hr 1 tab PO DAILY Discharge Orders: Discharge Order (Routine); Ordered 10/09/21 Ordered By: Horacio Grey Diet: Advance to usual diet Activity on Discharge: As tolerated Stand Alone Forms: Patient Portal Discharge page Care Plan Goals: full recovery from angioedema Health Concerns: angioedema related to lisinopril Plan of Treatment: Don't take lisinopril or similar class of medication anymore Take Norvasc 5 mg daily and incrase toprol to 50 mg daily for blood pressure Assessment: as above Discharge Date/Time: 10/09/21 16:00
[2021-10-09] MEDS: amLODIPine Besylate 5 MG TABLET PO (14:03)
[2021-10-09 14:49] VITALS: BP 152/80
--- NOTE | 2021-10-19 12:26 | PM.DS ---
DS: Providers Provider Date of Service: 10/09/21 Date of admission: 10/08/21 08:39 Primary care physician: Clarisa Cee MD DS: Summary Time Spent with Patient Time attestation: Total time spent providing and/or coordinating discharge services: Physical Exam Vital Signs: Vital Signs: Last Vital Signs Temp 97.9 F 10/09/21 11:09 Pulse 63 10/09/21 11:09 Resp 16 10/09/21 11:09 BP 152/80 H 10/09/21 14:49 Pulse Ox 96 10/09/21 11:09 O2 Del Method 10/09/21 11:09 O2 Flow Rate 4 10/08/21 01:27 Oxygen Flow Rate 4 10/08/21 01:09 BMI result Body Mass Index 28.9 Discharge Plan Discharge Anticipated Discharge Date/Time: 10/09/21 13:42 Patient Disposition: Home, Self-Care Discharge Diagnosis: Angiodema related to romy Referrals: Clarisa Cee MD [Primary Care Provider] - 1 Week Discharge Medications: New metoprolol succinate 50 mg capsule,sprinkle,ER 24hr 50 mg PO DAILY Qty: 30 0RF amlodipine [Norvasc] 5 mg tablet 5 mg PO DAILY Qty: 30 0RF Continued ondansetron 4 mg tablet,disintegrating 4 mg PO Q8H PRN (Reason: nausea and vomiting) Qty: 7 0RF medroxyprogesterone 5 mg tablet 1 tab PO DAILY fluoride (sodium) [PreviDent 5000 Booster Plus] 1.1 % paste 1 ea dental DAILY metoprolol succinate 25 mg tablet extended release 24 hr 25 mg PO DAILY Discontinued lisinopril 10 mg tablet 1 tab PO DAILY metoprolol succinate 25 mg tablet extended release 24 hr 1 tab PO DAILY Discharge Orders: Discharge Order (Routine); Ordered 10/09/21 Ordered By: Horacio Grey Diet: Advance to usual diet Activity on Discharge: As tolerated Stand Alone Forms: Patient Portal Discharge page Care Plan Goals: full recovery from angioedema Health Concerns: angioedema related to lisinopril Plan of Treatment: Don't take lisinopril or similar class of medication anymore Take Norvasc 5 mg daily and incrase toprol to 50 mg daily for blood pressure Assessment: as above Discharge Date/Time: 10/09/21 16:00
== END 2021-10-09 16:00 | disposition home or self-care (01) ==
LOC: HO.ED 05:59 → HO.EDOVER 08:45 → HO.S3 11:24
PROVIDERS: Admitting Provider Internal Medicine; Emergency Provider Emergency Medicine; PCP Internal Medicine; Visit Provider Internal Medicine
DX: T78.3XXA Angioneurotic edema, initial encounter (principal); T78.40XA Allergy, unspecified, initial encounter; X58.XXXA Exposure to other specified factors, initial encounter; I10 Essential (primary) hypertension; Z20.822 Contact with and (suspected) exposure to COVID-19; D72.829 Elevated white blood cell count, unspecified; Z79.899 Other long term (current) drug therapy
CPT/HCPCS: 36415; 80048; 83036; 85025; 85027; 86850; 86900; 86901; 87635; 96372; 96374; 96375; 96376; 99218; 99284; 99285; J0171; J1200; J2920; J2930; P9017; Q0163